=== PATIENT | female | born 1975 | race African-American/Black ===

== ENCOUNTER 2017-03-24 07:10 | Emergency (ER) | payer MEDICAID, OTHER ==
[~2017-03-24] VITALS: Ht 172.7 cm; Wt 80.0 kg
[2017-03-24 09:04] VITALS: BP 128/87
== END 2017-03-24 09:15 | disposition home or self-care (01) ==
LOC: ER 07:23
DX: S16.1XXA Strain of muscle, fascia and tendon at neck level, initial encounter (principal); Z90.49 Acquired absence of other specified parts of digestive tract; V89.2XXA Person injured in unspecified motor-vehicle accident, traffic, initial encounter; Y93.89 Activity, other specified; Y92.410 Unspecified street and highway as the place of occurrence of the external cause; Y99.8 Other external cause status
CPT/HCPCS: 99283; Z7610